=== PATIENT | female | born 1995 | race Caucasian/White ===

== ENCOUNTER 2016-03-09 20:58 | Emergency (ER) | payer OTHER ==
[2016-03-09 21:09] VITALS: BP 127/79; TEMP 98.8; BMI 27.4
[2016-03-09 21:24] LABS: BILIRUBIN,URINE Negative (NEGATIVE); KETONES,URINE 2+ (NEGATIVE); LEUKOCYTE ESTERASE ,URINE 2+ (NEGATIVE); NITRITE,URINE Negative (NEGATIVE); PROTEIN,URINE Negative (NEGATIVE); URINE, BLOOD 1+ (NEGATIVE)
[2016-03-09 21:26] LABS: ADD URINE MICROSCOPIC YES; URINE PREGNANCY INTERNAL QC INTERNAL QC VALID
[2016-03-09 21:34] LABS: BASOPHILS % (AUTO) 0.2 % (0.0-3.0); EOSINOPHILS % (AUTO) 0.1 % (0.0-7.0); HEMATOCRIT 36.8 % (37.0-47.0); HEMOGLOBIN 12.9 g/dl (12.0-16.0); IMMATURE GRANULOCYTE % (AUTO) 0.5 % (0.0-5.0); LYMPHOCYTES # (AUTO) 1.6 K/uL (0.60-3.4); LYMPHOCYTES % (AUTO) 8.8 (10.0-50.0); MEAN CORPUSCULAR HEMOGLOBIN 29.6 pg (27.0-31.0); MEAN CORPUSCULAR HGB CONC 35.1 (31.8-35.4); MEAN CORPUSCULAR VOLUME 84.4 fl (81.0-99.0); MONOCYTES # (AUTO) 1.5 K/uL (0.4-2.0); MONOCYTES % (AUTO) 8.6 (0-10); NEUTROPHILS # (AUTO) 14.4 K/ul (2.0-6.9); NEUTROPHILS % (AUTO) 81.8; PLATELET COUNT 232 10^3/uL (140-440); RED BLOOD COUNT 4.36 10^6/ul (4.20-5.40); WHITE BLOOD COUNT 17.59 K/ul (4.6-10.2)
[2016-03-09 21:39] LABS: BACTERIA,URINE 3+ (NOT PRESENT)
[2016-03-09 21:40] LABS: TRICHOMONAS,URINE MODERATE (NOT PRESENT)
[2016-03-09 21:54] LABS: ALBUMIN 4.1 g/dL (3.7-5.6); ALBUMIN/GLOBULIN RATIO 1.03; ANION GAP 14.8; BILIRUBIN,TOTAL 1.91 mg/dL (0.60-1.40); BUN/CREATININE RATIO 12.79; CALCIUM 9.7 mg/dL (8.2-10.2); CREATININE 0.86 mg/dL (0.60-1.30); POTASSIUM 3.8 mmol/L (3.5-5.10); TOTAL PROTEIN 8.1 g/dL (6.4-8.2)
--- NOTE | 2016-03-09 21:57 | CT ---
EXAM: CT abdomen pelvis without intravenous contrast 03/09/2016. Sagittal and coronal reformatted images obtained HISTORY: Right flank pain and fever COMPARISON: None. FINDINGS: The liver, gallbladder, adrenal glands and kidneys show no acute process. No urinary obs truction. The spleen and pancreas show no acute process. There is no bowel obstruction. Appendix not visualized. There is a mottled stool appearance of the distal small bowel indicative of delayed transit. Large quantity of stool throughout the ascending and transverse colon. This may relate to fecal stasis. IMPRESSION: 1. There is no evidence of urinary or bowel obstruction. 2. Mottled stool appearance of the distal small bowel. Large quantity of stool in the ascending an d transverse colon. This is indicative of delayed transit/fecal stasis. 3. Appendix not identified. 4. Technically limited examination due to the lack of intravenous contrast.
--- NOTE | 2016-03-09 22:07 | ED.PDOC ---
General ED Provider: Dr. JERMAINE HUBER-ER Chief Complaint: Back Pain Stated Complaint: im burning when i pee and my back hurts Time Seen by Physician: 20:55 Mode of Arrival: Walk-In Information Source: Patient, Family Exam Limitations: No limitations Nursing and Triage Documentation Reviewed and Agree: Yes Complaint Exam - UTI Female Complaint/Exam Patient Complains of: Reports: Painful urination Onset/Duration: 3 days Symptoms Are: Still present Timing: Constant Initial Severity: Mild Current Severity: Mild Location of Pain: Reports: Right, Flank Associated Signs and Symptoms: Reports: Fever, Chills, Flank pain. Denies: Dyspareunia, Vaginal discharge Patient Rh Status: Unknown Related History: Reports: Similar episode Related Surgical History: Reports: None CVA Tenderness: No Suprapubic Tenderness: No Differential Diagnoses: Bladder Dysfunction, Pyelonephritis Review of Systems - Review Of Systems Constitutional: Reports: Chills, Fever Eyes: Reports: No symptoms Ears, Nose, Mouth, Throat: Reports: No symptoms Respiratory: Reports: No symptoms Cardiac: Reports: No symptoms GI: Reports: No symptoms : Reports: Flank pain, Pain Musculoskeletal: Reports: No symptoms Skin: Reports: No symptoms Neurological: Reports: No symptoms Endocrine: Reports: No symptoms Hematologic/Lymphatic: Reports: No symptoms All Other Systems: Reviewed and Negative Past Medical History - Past Medical History Previously Healthy: Yes Endocrine: Reports: None Cardiovascular: Reports: None Respiratory: Reports: None Hematological: Reports: None Gastrointestinal: Reports: None Genitourinary: Reports: None Neuro/Psych: Reports: None Musculoskeletal: Reports: None Cancer: Reports: None Last Menstrual Period: LAST WEEK - Surgical History General Surgical History: Reports: Unknown - Family History Family History: Reports: Unknown - Social History Smoking Status: Never smoker Hx Substance Use: No Alcohol Screening: None Lives: With family - Immunizations Tetanus Shot up to Date: Yes Physical Exam - Physical Exam Appearance: Well-appearing Pain Distress: Mild Eyes: KRISTI, EOMI, Conjunctiva clear ENT: Ears normal, Nose normal, Oropharynx normal Neck: Supple Respiratory: Airway patent, Breath sounds clear, Breath sounds equal, Respirations nonlabored Cardiovascular: RRR, Pulses normal, No rub, No murmur GI/: Soft, Nontender, No masses, Bowel sounds normal, No Organomegaly Musculoskeletal: Normal strength Skin: Warm, Dry, Normal color Neurological: Sensation intact Psychiatric: Affect appropriate, Mood appropriate Interpretation - Radiology Interpretation Radiology Interpretation By: Radiologist Radiology Results: Negative Exam Interpreted: CT Scan Critical Care Note - Critical Care Note Total Time (mins): 0 Course - Course Hematology/Chemistry: 03/09/16 21:25 03/09/16 21:25 Orders, Labs, Meds: Lab Review 03/09/16 03/09/16 21:10 21:25 WBC 17.59 H RBC 4.36 Hgb 12.9 Hct 36.8 L MCV 84.4 MCH 29.6 MCHC 35.1 RDW Coeff of Miguel 12.3 Plt Count 232 Immature Gran % (Auto) 0.5 Neut % (Auto) 81.8 Lymph % (Auto) 8.8 L [place] % (Auto) 8.6 Eos % (Auto) 0.1 Baso % (Auto) 0.2 Immature Gran # (Auto) 0.1 Neut # 14.4 H Lymph # 1.6 Dale # 1.5 Eos # 0.0 Baso # 0.0 Sodium 133 L Potassium 3.8 Chloride 99 Carbon Dioxide 23 Anion Gap 14.8 BUN 11 Creatinine 0.86 Estimated GFR (MDRD) 85.00 BUN/Creatinine Ratio 12.79 Glucose 101 Calcium 9.7 Total Bilirubin 1.91 H AST 13 ALT 12 Alkaline Phosphatase 81 Total Protein 8.1 Albumin 4.1 Globulin 4.0 Albumin/Globulin Ratio 1.03 Amylase 42 Lipase 4 L Urine Color Yellow Urine Clarity Slightly Urine pH 6.0 Ur Specific [place] 1.010 Urine Protein Negative Urine Glucose (UA) Negative Urine Ketones 2+ Urine Blood 1+ Urine Nitrite Negative Urine Bilirubin Negative Urine Urobilinogen 0.2 Ur Leukocyte Esterase 2+ Urine Microscopic RBC 0-2 Urine Microscopic WBC 10-20 Ur Squamous Epith Cells 10-20 Urine Bacteria 3+ Urine Trichomonas Moderate Urine Test Negative Orders Category Date Time Status AMYLASE Stat LAB 03/09/16 21:25 Completed BLOOD CULTURE Stat LAB 03/09/16 21:25 Received CBC W/ AUTO DIFF Stat LAB 03/09/16 21:25 Completed COMPREHENSIVE METABOLIC PANEL Stat LAB 03/09/16 21:25 Completed LIPASE Stat LAB 03/09/16 21:25 Completed URINALYSIS C & S IF INDICATED Stat LAB 03/09/16 21:10 Completed URINE CULTURE Stat LAB 03/09/16 21:10 Received URINE Stat LAB 03/09/16 21:[address] ABDOMEN/PELVIS WO CONTRAST Stat RADS 03/09/16 21:17 Completed Vital Signs: Temp Pulse Resp BP Pulse Ox 03/09/16 20:58 98.8 F 110 H 18 127/79 100 Departure - Departure Time of Disposition: 22:07 Disposition: HOME SELF-CARE Discharge Problem: Trichomoniasis UTI (urinary tract infection) Qualifiers: Urinary tract infection type: site unspecified Hematuria presence: without hematuria Qualifier Code: (N39.0) Urinary tract infection, site not specified Instructions: Urinary Tract Infection in Women (ED) Condition: Good Pt referred to PMD for follow-up: Yes Additional Instructions: cipro 500mg bid x 7 dyays--flagyl 500mg tid x 7 days--sexual partner needs tx--f /u with sole painter Allergies/Adverse Reactions: Allergies No Known Allergies Allergy (Verified 03/09/16 21:06) Home Medications: Ambulatory Orders Control Pill 1 tab PO DAILY 03/09/16 Disposition Discussed With: Patient, Family
[2016-03-09] MEDS ORDERED: CIPRO PO STA (22:09)
[2016-03-09] MEDS ORDERED: FLAGYL PO STA (22:09)
== END 2016-03-09 22:17 | disposition home or self-care (01) ==
LOC: ED 20:58
DX: N39.0 Urinary tract infection, site not specified (principal); A59.9 Trichomoniasis, unspecified
CPT/HCPCS: 36415; 80053; 81001; 81025; 82150; 83690; 85025; 87040; 87086; 87186; 99283